=== PATIENT | male | born 1955 | race Caucasian/White ===

== ENCOUNTER 2025-05-10 10:00 | Outpatient (CLI) | payer MEDICARE, BC, SELFPAY ==
--- NOTE | 2025-05-10 11:31 | P.ANES_ITS ---
Anesthesia Charges Start Date/Time Anesthesia Start Date: 05/10/25 Anesthesia Start Time: 10:54 Stop Date/Time Anesthesia Stop Date: 05/10/25 Anesthesia Stop Time: 11:27 Coding CPT Codes CPT Codes: ANES LWR INTST NDSC NOS - [id number] ([id number]) P3 - PATIENT W/SEVERE SYS DISEASE, QK - ENVIRONMENTAL MARKETER 2-4 CNCRNT ANES PROC, QX - ALLIGATOR HUNTER SVC W/ MD MED DIRECTION
--- NOTE | 2025-05-10 11:31 | W.ANESCHARGE ---
Anesthesia Charges Start Date/Time Anesthesia Start Date: 05/10/25 Anesthesia Start Time: 10:54 Stop Date/Time Anesthesia Stop Date: 05/10/25 Anesthesia Stop Time: 11:27 Coding CPT Codes CPT Codes: ANES LWR INTST NDSC NOS - [id number] ([id number]) P3 - PATIENT W/SEVERE SYS DISEASE, QK - DELIVERY TECH 2-4 CNCRNT ANES PROC, QX - RESEARCH CONSULTANT SVC W/ MD MED DIRECTION
--- NOTE | 2025-05-10 12:41 | P.ANES_ITS ---
Anesthesia Charges Start Date/Time Anesthesia Start Date: 05/10/25 Anesthesia Start Time: 10:54 Stop Date/Time Anesthesia Stop Date: 05/10/25 Anesthesia Stop Time: 11:27 Coding CPT Codes CPT Codes: ANES LWR INTST NDSC NOS - [id number] ([id number]) QK - SOAKING PIT OPERATOR 2-4 CNCRNT ANES PROC, QX - AEROSPACE MANAGER SVC W/ MED DIRECTION, P3 - PATIENT W/SEVERE SYS DISEASE
--- NOTE | 2025-05-10 12:41 | W.ANESCHARGE ---
Anesthesia Charges Start Date/Time Anesthesia Start Date: 05/10/25 Anesthesia Start Time: 10:54 Stop Date/Time Anesthesia Stop Date: 05/10/25 Anesthesia Stop Time: 11:27 Coding CPT Codes CPT Codes: ANES LWR INTST NDSC NOS - [id number] ([id number]) QK - EXTENSION PROFESSOR 2-4 CNCRNT ANES PROC, QX - SENIOR QUALITY ASSURANCE ENGINEER SVC W/ MED DIRECTION, P3 - PATIENT W/SEVERE SYS DISEASE
== END 2025-05-10 10:01 | disposition home or self-care (01) ==
PROVIDERS: PCP Family Medicine; Visit Provider Surgery
DX: Z12.11 Encounter for screening for malignant neoplasm of colon (principal); Z86.0100 Personal history of colon polyps, unspecified; D12.3 Benign neoplasm of transverse colon; K64.8 Other hemorrhoids; K57.30 Diverticulosis of large intestine without perforation or abscess without bleeding
CPT/HCPCS: 00811; 45385; 88305; J2704